=== PATIENT | female | born 1950 | race Two or more races ===

== ENCOUNTER 2023-02-24 12:36 | Emergency (ER) | payer OTHER ==
[~2023-02-24] VITALS: Ht 162.6 cm; Wt 71.2 kg
[2023-02-24] MEDS ORDERED: COZAAR25 MG (13:33)
== END 2023-02-24 18:23 | disposition home or self-care (01) ==
LOC: ER 12:36
DX: S99.821A Other specified injuries of right foot, initial encounter (principal); X58.XXXA Exposure to other specified factors, initial encounter; Y93.89 Activity, other specified; Y92.89 Other specified places as the place of occurrence of the external cause; Y99.8 Other external cause status; I10 Essential (primary) hypertension; Z88.0 Allergy status to penicillin